=== PATIENT | female | born 1955 | race Caucasian/White ===

== ENCOUNTER 2018-08-17 09:29 | Outpatient (CLI) | payer OTHER ==
--- NOTE | 2018-08-17 11:47 | MRI ---
MRI Upper Ext Jt Lt WO Con History: [M 79.602 pain of left upper extremity] Comparison: Shoulder radiographs of July 16, 2018 Findings: Biceps tendon: Mild extra arterial biceps tendinosis. There is intra-articular interstitial type tearing. Labrum: Tear of the superior labrum extending anterior and posterior to the biceps anchor. There is a lso tear of the anterior inferior labrum. Rotator cuff: There is 30-40% bursal surface tearing the footprint of the supraspinatus tendon with s mall associated insertional cortical cysts. Small subacromial subdeltoid bursa effusion. Mild tendinosis. Moderate tendinosis subscapularis. Bones: Type I acromion. Mild degenerative disease acromioclavicular joint. Normal glenoid version. Muscles: No muscle atrophy. Impression: 1. Extensive tearing throughout the superior labrum extending to the anterior inferior labrum. 2. 30-40% bursal surface tearing the footprint of the supraspinatus tendon with associated small suba cromial subdeltoid bursa effusion. 3. Moderate intra-articular tendinosis and delamination type tear of the biceps tendon.
== END 2018-08-17 09:30 | disposition home or self-care (01) ==
LOC: BICMRI 09:29
PROVIDERS: ATTEND Family Medicine
DX: M79.602 Pain in left arm (principal); S43.492A Other sprain of left shoulder joint, initial encounter; M75.92 Shoulder lesion, unspecified, left shoulder

== ENCOUNTER 2019-01-11 16:53 | Emergency (ER) | payer OTHER, SELFPAY ==
[2019-01-11] MEDS ORDERED: Acetaminophen 500 MG TAB ONE (17:38)
[2019-01-11] MEDS ORDERED: Cyclobenzaprine 10 MG TAB ONE (17:38)
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
== END 2019-01-11 18:51 | disposition home or self-care (01) ==
LOC: ERS 16:53
DX: S16.1XXA Strain of muscle, fascia and tendon at neck level, initial encounter (principal); S20.219A Contusion of unspecified front wall of thorax, initial encounter; S80.211A Abrasion, right knee, initial encounter; V89.2XXA Person injured in unspecified motor-vehicle accident, traffic, initial encounter
CPT/HCPCS: 71045

== ENCOUNTER 2019-08-26 19:04 | Emergency (ER) | payer BC, OTHER ==
[2019-08-26 19:36] LABS: #Basophils 0.1 thou/uL (0.0-0.2); #Eosinphils 0.1 thou/uL (0.0-0.7); #Lymphocytes 2.2 thou/uL (1.20-3.40); #Monocytes 0.6 thou/uL (0.11-0.59); #Neutrophils 2.5 thou/uL (1.40-6.50); %Basophils 1.2 % (0.0-1.0); %Eosinophils 1.8 % (0.0-10.0); %Lymphocytes 40.2 % (21.0-51.0); %Monocytes 11.2 % (0.0-10.0); %Neutrophils 45.6 % (42.0-75.0); Hemoglobin 13.7 g/dL (12.0-16.0); Mean Corpuscular HGB CONC 34.4 g/dL (32.0-36.0); Mean Corpuscular Hemoglobin 31.6 pg (27.0-31.0); Mean Corpuscular Volume 91.8 fL (78.0-98.0); Mean Platelet Volume 7.3 fL (7.4-10.4); Platelet Count 282 thou/uL (130-400); Red Blood Cell (RBC) Count 4.34 mill/uL (4.20-5.40); White Blood Cell (WBC) Count 5.5 thou/uL (4.8-10.8)
[2019-08-26 19:58] LABS: ALT (SGPT) 27 U/L (8-55); AST (SGOT) 21 U/L (5-34); Albumin 4.3 g/dL (3.4-4.8); Alkaline Phosphatase 77 U/L (40-110); Anion Gap 12 mmol/L (10-20); BUN (Urea Nitrogen) 17 mg/dL (9.8-20.1); Bilirubin, Total 0.4 mg/dL (0.2-1.2); Calc. Creatinine Clearance 0 mL/min (70-130); Calcium 9.1 mg/dL (7.8-10.44); Carbon Dioxide 29 mmol/L (23-31); Chloride 106 mmol/L (98-107); Estimated GFR-MDRD 75; Glucose 113 mg/dL (80-115); Potassium 4.1 mmol/L (3.5-5.1); Protein, Total 7.3 g/dL (6.0-8.3); Sodium 143 mmol/L (136-145)
--- NOTE | 2019-08-31 14:52 | EKG ---
Test Reason : Blood Pressure : / mmHG Vent. Rate : 093 BPM Atrial Rate : 093 BPM P-R Int : 168 ms QRS Dur : 080 ms QT Int : 352 ms P-R-T Axes : 057 015 055 degrees QTc Int : 437 ms Normal sinus rhythm with sinus arrhythmia Low voltage QRS Borderline ECG Confirmed by NINO SUMNER, CHRIS ([id number]), non linear editor CORINNE HART ([id number]) on 08/31/2019 2:51:38 PM Referred By: Confirmed By:CHRIS ONEILL MD
== END 2019-08-26 22:48 | disposition home or self-care (01) ==
LOC: ERS 19:04
DX: I10 Essential (primary) hypertension (principal); Z79.899 Other long term (current) drug therapy
CPT/HCPCS: 36415; 80053; 84484; 85025; 93005

== ENCOUNTER 2019-09-09 09:38 | Outpatient (CLI) | payer BC ==
--- NOTE | 2019-09-09 10:02 | BD ---
EXAM: DEXA bone density examination HISTORY: 63-year-old postmenopausal female for screening COMPARISON: None FINDINGS: L1--bone mineral density 0.925 g/sq cm; T score -0.6 L2--bone mineral density 0.928 g/sq cm; T score -0.9 L3--bone mineral density 0.991 g/sq cm; T score -0.8 L4--bone mineral density 1.010 g/sq cm; T score -0.5 Total L1-L4--bone mineral density 0.967 g/sq cm; T score -0.7 Left femoral neck--bone mineral density0.611; T score -2.1 Total proximal left femur--bone mineral density 0.803; T score -1.1 IMPRESSION: Osteopenia. This patient has a 10 year WHO fracture risk of a major osteoporotic fracture of 13% and of a hip fracture of 2.1%.
== END 2019-09-09 09:39 | disposition home or self-care (01) ==
LOC: BICMAMMO 09:38
PROVIDERS: ATTEND Advanced Practice Midwife
DX: Z13.820 Encounter for screening for osteoporosis (principal); M85.852 Other specified disorders of bone density and structure, left thigh
CPT/HCPCS: 77080

== ENCOUNTER 2023-12-25 10:30 | Outpatient (CLI) | payer BC | END 2023-12-25 10:31 | disposition home or self-care (01) | LOC: RAD 10:30 | PROVIDERS: ATTEND Family Medicine | DX: R42 Dizziness and giddiness (principal); R60.0 Localized edema | CPT/HCPCS: 71046 ==

== ENCOUNTER 2023-12-25 16:50 | Emergency (ER) | payer BC ==
[~2023-12-25 16:50] MED LIST: Iopamidol-370 76% 500 ML MDV (1 ML CHARGE) ONE
== END 2023-12-25 18:48 | disposition home or self-care (01) ==
LOC: ERS 16:50
DX: I26.99 Other pulmonary embolism without acute cor pulmonale (principal); I10 Essential (primary) hypertension; Z86.73 Personal history of transient ischemic attack (TIA), and cerebral infarction without residual deficits
CPT/HCPCS: 71275; Q9967

== ENCOUNTER 2024-01-04 08:50 | Outpatient (CLI) | payer BC | END 2024-01-04 08:51 | disposition home or self-care (01) | LOC: BICMAMMO 08:50 | PROVIDERS: ATTEND Family Medicine | DX: Z12.31 Encounter for screening mammogram for malignant neoplasm of breast (principal); Z98.82 Breast implant status | CPT/HCPCS: 77063; 77067 ==

== ENCOUNTER 2024-10-13 08:59 | Emergency (ER) | payer BC, MEDICARE | END 2024-10-13 11:07 | disposition home or self-care (01) | LOC: ERS 08:59 | DX: M79.605 Pain in left leg (principal); I10 Essential (primary) hypertension; E78.00 Pure hypercholesterolemia, unspecified; Z86.73 Personal history of transient ischemic attack (TIA), and cerebral infarction without residual deficits; Z86.711 Personal history of pulmonary embolism; Z86.718 Personal history of other venous thrombosis and embolism; Z79.01 Long term (current) use of anticoagulants; Z79.899 Other long term (current) drug therapy ==